=== PATIENT | male | born 1985 | race African-American/Black ===

== ENCOUNTER 2016-11-30 11:26 | Emergency (ER) | payer MEDICAID ==
[~2016-11-30] VITALS: Ht 172.7 cm; Wt 75.0 kg
[~2016-11-30 11:26] MED LIST: ABILIFY 5 MG; ATAZ300C2; CAPECITABINE 150 MG; DARU800T; EFAV1TAB3 PO; ELVI1TAB; EMTR1TAB11 PO; RALT400T PO
[2016-11-30] MEDS ORDERED: SODIUM CHLORIDE 0.9% 1,000 ML IV ONE (11:52)
[2016-11-30 12:07] LABS: BASOPHILS % 0.2 % (0.0-2.0); EOSINOPHILS % 1.7 % (0.0-5.0); HEMATOCRIT. 44.2 % (42.0-52.0); LYMPHOCYTES % 13.6 % (20.0-50.0); MEAN CORPUSCULAR HEMOGLOBIN 29.1 pg (28.0-32.0); MEAN CORPUSCULAR VOLUME 85.7 fL (80.0-94.0); MEAN PLATELET VOLUME 8.1 fl (7.4-10.4); MONOCYTES % 8.7 % (2.0-8.0); NEUTROPHILS % 75.8 % (40.0-76.0); PLATELET 196 x1000/uL (130-400); RED BLOOD CELL COUNT 5.16 mill/uL (4.7-6.1); RED CELL DISTRIBUTION WIDTH 13.5 % (11.6-14.6); WHITE BLOOD COUNT 9.5 x1000/uL (4.5-11.0)
[2016-11-30 12:15] LABS: ALBUMIN 3.5 g/dL (3.4-5.0); ANION GAP 13; CALCIUM 8.5 mg/dL (8.5-10.1); CARBON DIOXIDE 26 mEq/L (21-32); CHLORIDE 108 mEq/L (98-107); INDEX HEMOLYSI 1 (1-3); INDEX ICTERIC 1 (1-4); INDEX LIPEMIC 1 (1-3); UREA NITROGEN BLOOD 8 mg/dL (7-21)
[2016-11-30 12:20] LABS: ALANINE AMINOTRANSFERASE 30 IU/L (13-61); ETHANOL BLOOD < 10 mg/dL; PHENYTOIN 0.7 ug/mL (10-20); eGFR > 60 mL/min (>60)
[2016-11-30] MEDS ORDERED: PHENYTOIN SODIUM 1,000 MG in SODIUM CHLORIDE 0.9% 100 ML IV ONE (12:45)
[2016-11-30 15:30] VITALS: BP 115/69
== END 2016-11-30 16:53 | disposition home or self-care (01) ==
LOC: ER 12:07
DX: R56.9 Unspecified convulsions (principal); Z79.899 Other long term (current) drug therapy; Z91.19 Patient's noncompliance with other medical treatment and regimen; M54.5 Low back pain
CPT/HCPCS: 36415; 80053; 80185; 85025; 96361; 96365; 99284; G0482; J1165; Z7610; J7030; J7050

== ENCOUNTER 2016-12-23 11:29 | Emergency (ER) | payer MEDICAID ==
[~2016-12-23] VITALS: Ht 167.6 cm; Wt 70.0 kg
[2016-12-23] MEDS ORDERED: SODIUM CHLORIDE 0.9% 1,000 ML IV ONE (11:40)
[2016-12-23] MEDS ORDERED: LORAZEPAM 2MG/ML CPJ IV ONE (11:45)
[2016-12-23 12:22] LABS: BASOPHILS % 0.8 % (0.0-2.0); EOSINOPHILS % 1.1 % (0.0-5.0); HEMATOCRIT. 45.3 % (42.0-52.0); HEMOGLOBIN. 15.4 g/dL (14.0-18.0); LYMPHOCYTES % 31.6 % (20.0-50.0); MEAN CORPUSCULAR HEMOGLOBIN 29.8 pg (28.0-32.0); MEAN CORPUSCULAR HGB CONC 34.1 g/dL (31.0-37.0); MEAN CORPUSCULAR VOLUME 87.3 fL (80.0-94.0); MEAN PLATELET VOLUME 9.7 fl (7.4-10.4); MONOCYTES % 7.7 % (2.0-8.0); NEUTROPHILS % 58.8 % (40.0-76.0); PLATELET 176 x1000/uL (130-400); RED BLOOD CELL COUNT 5.19 mill/uL (4.7-6.1); RED CELL DISTRIBUTION WIDTH 13.7 % (11.6-14.6); WHITE BLOOD COUNT 8.5 x1000/uL (4.5-11.0)
[2016-12-23] MEDS ORDERED: PHENYTOIN SODIUM 1,000 MG in SODIUM CHLORIDE 0.9% 100 ML IV ONE (13:00)
[2016-12-23 13:28] LABS: CHLORIDE 108 mEq/L (98-107); INDEX HEMOLYSI 2 (1-3); INDEX ICTERIC 1 (1-4); INDEX LIPEMIC 1 (1-3)
[2016-12-23 13:35] LABS: ALANINE AMINOTRANSFERASE 29 IU/L (13-61); ALBUMIN 3.7 g/dL (3.4-5.0); ANION GAP 8; CALCIUM 8.6 mg/dL (8.5-10.1); CARBON DIOXIDE 27 mEq/L (21-32); UREA NITROGEN BLOOD 8 mg/dL (7-21); eGFR > 60 mL/min (>60)
[2016-12-23] MEDS ORDERED: PHENYTOIN SODIUM EXTENDED 100MG CAPSULE PO ONE (14:45)
[2016-12-23 18:18] VITALS: BP 115/72
== END 2016-12-23 18:20 | disposition home or self-care (01) ==
LOC: ER 11:29
DX: R56.9 Unspecified convulsions (principal); R79.0 Abnormal level of blood mineral
CPT/HCPCS: 36415; 80053; 80185; 85025; 96360; 96361; 99285; J1165; J7030; J7050

== ENCOUNTER 2017-01-02 17:48 | Emergency (ER) | payer MEDICAID ==
[~2017-01-02] VITALS: Ht 157.5 cm; Wt 69.2 kg
[2017-01-02] MEDS ORDERED: KETOROLAC 60MG/2ML VIAL IM ONE (18:15)
[2017-01-02 18:39] VITALS: BP 110/75
== END 2017-01-02 19:23 | disposition home or self-care (01) ==
LOC: ER 19:21
DX: M54.9 Dorsalgia, unspecified (principal); G40.909 Epilepsy, unspecified, not intractable, without status epilepticus
CPT/HCPCS: 96372; 99283; J1885

== ENCOUNTER 2017-02-19 12:46 | Emergency (ER) | payer MEDICAID ==
[~2017-02-19] VITALS: Ht 167.6 cm; Wt 70.0 kg
[2017-02-19 13:22] LABS: BASOPHILS % 0.2 % (0.0-2.0); EOSINOPHILS % 1.9 % (0.0-5.0); HEMATOCRIT. 45.5 % (42.0-52.0); HEMOGLOBIN. 15.2 g/dL (14.0-18.0); LYMPHOCYTES % 44.8 % (20.0-50.0); MEAN CORPUSCULAR HEMOGLOBIN 29.1 pg (28.0-32.0); MEAN CORPUSCULAR VOLUME 86.9 fL (80.0-94.0); MEAN PLATELET VOLUME 8.9 fl (7.4-10.4); MONOCYTES % 7.3 % (2.0-8.0); NEUTROPHILS % 45.8 % (40.0-76.0); PLATELET 200 x1000/uL (130-400); RED BLOOD CELL COUNT 5.23 mill/uL (4.7-6.1); RED CELL DISTRIBUTION WIDTH 13.8 % (11.6-14.6)
[2017-02-19 13:30] LABS: PROTHROMBIN TIME 10.6 sec
[2017-02-19 13:38] LABS: CARBON DIOXIDE 21 mEq/L (21-32); CHLORIDE 108 mEq/L (98-107)
[2017-02-19 13:41] LABS: PHENYTOIN < 0.4 ug/mL (10-20)
[2017-02-19 13:52] LABS: CLARITY URINE CLEAR (CLEAR); COLOR URINE YELLOW (YELLOW); GLUCOSE URINE NEGATIVE (NEGATIVE); KETONES URINE TRACE (NEGATIVE); LEUKOCYTE ESTERASE URINE NEGATIVE (NEGATIVE); NITRITE URINE NEGATIVE (NEGATIVE); OCCULT BLOOD URINE 1+ (NEGATIVE); PH URINE 5.5 (4.5-8.0); PROTEIN URINE 1+ (NEGATIVE); SPECIFIC GRAVITY URINE 1.015 (1.005-1.030); UROBILINOGEN URINE 0.2 E.U./dL (0.2-1.0)
[2017-02-19] MEDS ORDERED: PHENYTOIN SODIUM 1,000 MG in SODIUM CHLORIDE 0.9% 100 ML IV ONE (14:00)
[2017-02-19 20:33] VITALS: BP 107/74
== END 2017-02-19 20:34 | disposition home or self-care (01) ==
LOC: ER 12:48
DX: G40.909 Epilepsy, unspecified, not intractable, without status epilepticus (principal); R53.1 Weakness; R51 Headache; Z79.899 Other long term (current) drug therapy
CPT/HCPCS: 36415; 80053; 80185; 81001; 85025; 85610; 96365; 96366; 99285; J1165; J7040; J7050